=== PATIENT | female | born 1990 | race Caucasian/White ===

== ENCOUNTER 2025-01-13 04:00 | Day surgery (SDC) | payer OTHER ==
[2025-01-13] VITALS (211 sets, daily range): BP systolic 74–133; BP diastolic 44–102
[~2025-01-13] VITALS: Ht 154.9 cm; Wt 57.2 kg
[~2025-01-13 04:00] MED LIST: SODIUM CHLORIDE 0.9% 1,000 ML IV PRN
[2025-01-13] MEDS ORDERED: LACTATED RINGER'S 1,000 ML IV PRN ×2 (07:30→08:20)
[2025-01-13] MEDS ORDERED: cloNIDine HCL 0.1 MG/TAB PO PRN (07:30)
[2025-01-13] MEDS ORDERED: CYANOCOBALAMIN 500 MCG/TAB ( B12) PO PRN (07:30)
[2025-01-13] MEDS ORDERED: FAMOTIDINE 20 MG/TAB PO PRN (07:30)
[2025-01-13] MEDS ORDERED: PANTOPRAZOLE SODIUM Sesquihydr 40 MG/TAB PO PRN (07:30)
[2025-01-13] MEDS ORDERED: SCOPOLAMINE 1.5 MG DIS TD PRN (07:30)
[2025-01-13] MEDS ORDERED: ALBUTEROL SULFATE 2.5 MG VIAL IN PRN (07:30)
[2025-01-13] MEDS ORDERED: diazePAM 5 MG/TAB PO PRN ×2 (07:30→08:30)
[2025-01-13] MEDS ORDERED: ASCORBIC ACID 4,000 MG in SODIUM CHLORIDE 0.9% 1,000 ML IV SCH (08:00)
[2025-01-13 08:08] LABS: BASO% 0.6 % (0-3); EOS% 1.5 % (0-8); HEMATOCRIT 36.2 % (37.0-47.0); HEMOGLOBIN 11.9 g/dl (12.0-16.0); IMMATURE GRANULOCYTES 0.2 % (0.0-5.0); LYMPH% 26.9 % (15-41); MEAN CELL VOLUME 93.3 fL CALC (80.0-100.0); MEAN CORPUSCULAR HGB 30.7 pG CALC (26.0-32.0); MEAN CORPUSCULAR HGB CONC 32.9 g/dL CAL (32.0-36.0); MONO% 7.9 % (2-13); NEUT# 3.35 thou/uL (2.00-7.15); NEUT% 62.9 % (42-76); RED BLOOD COUNT 3.88 mill/uL (4.20-5.60); RED CELL DISTRI WIDTH 14.4 % (11.5-15.5)
[2025-01-13 08:18] LABS: ALBUMIN 4.5 g/dL (3.2-5.0); BILIRUBIN, TOTAL 0.3 mg/dL (0.02-1.3); CREATININE 0.5 mg/dL (0.5-1.0); POTASSIUM 4.1 mmol/l (3.5-5.1); TOTAL PROTEIN 7.5 g/dL (6.3-8.2)
[2025-01-13] MEDS ORDERED: STERILE WATER FOR IRRIGATION 1,000 ML BTL IR PRN (08:20)
[2025-01-13] MEDS ORDERED: OCTREOTIDE ACETATE 100 MCG/VIAL SDV SC PRN (08:20)
[2025-01-13] MEDS ORDERED: PROPOFOL 10 MG/ML 100ML VIAL IV PRN (08:20)
[2025-01-13] MEDS ORDERED: MAGNESIUM SULFATE HEPTAHYDRATE 100 ML IV PRN (08:20)
[2025-01-13] MEDS ORDERED: ONDANSETRON HCl 4 MG/2 ML SDV IV PRN ×3 (08:20→19:00)
[2025-01-13] MEDS ORDERED: diazePAM 5 MG/TAB VT PRN (08:20)
[2025-01-13] MEDS ORDERED: LIDOCAINE HCL 1% (10MG/ML) 100 MG/10 ML MDV IV PRN (08:20)
[2025-01-13] MEDS ORDERED: DiphenhydrAMINE HCL 50 MG/ML SDV IV PRN (08:20)
[2025-01-13] MEDS ORDERED: PROPOFOL 100 ML IV PRN (08:20)
[2025-01-13] MEDS ORDERED: cloNIDine HCL 0.1 MG/TAB VT PRN (08:20)
[2025-01-13] MEDS ORDERED: LIDOCAINE HCL 1% (10MG/ML) 100 MG/10 ML MDV VT PRN ×2 (08:20)
[2025-01-13] MEDS ORDERED: THIAMINE HCL 100 MG/ML 2ML VIAL IV PRN (08:20)
[2025-01-13] MEDS ORDERED: SUCCINYLCHOLINE CHLORIDE 20 MG/ML 10ML VIAL IV PRN (08:20)
[2025-01-13] MEDS ORDERED: NALTREXONE HCL 50 MG/TAB VT PRN (08:20)
[2025-01-13] MEDS ORDERED: MIDAZOLAM HCL 2 MG/2 ML VIAL IV PRN ×3 (08:20→15:00)
[2025-01-13] MEDS ORDERED: ROCURONIUM BROMIDE 10 MG/ML 5 ML VIAL IV PRN (08:20)
[2025-01-13] MEDS ORDERED: cloNIDine HYDROCHLORIDE 100 MCG/ML 10 ML INJ IV PRN (08:20)
[2025-01-13] MEDS ORDERED: SODIUM CHLORIDE 0.9% 1,000 ML IV PRN ×2 (08:25→14:55)
[2025-01-13] MEDS ORDERED: diazePAM 5 MG/TAB PO SCH (08:30)
[2025-01-13] MEDS ORDERED: POTASSIUM CHLORIDE 20 MEQ/100 ML BAG IV PRN (09:20)
[2025-01-13] MEDS ORDERED: PHENYLEPHRINE HCL 10 MG in DEXTROSE 5% 250 ML IV PRN (09:55)
[2025-01-13] MEDS ORDERED: PHENYLEPHRINE HCL 10 MG/ML VIAL ONE (10:54)
[2025-01-13] MEDS ORDERED: DEXMEDETOMIDINE HCL IN SODIUM 100 ML IV SCH (12:05)
[2025-01-13] MEDS ORDERED: clonazePAM 1 MG/TAB PO PRN (15:00)
[2025-01-13] MEDS ORDERED: NALTREXONE50 MG PO (15:10)
[2025-01-13] MEDS ORDERED: CLONIDINE0.1 MG PO (15:11)
[2025-01-13] MEDS ORDERED: KLONOPIN2 MG PO (15:11)
[2025-01-13] MEDS ORDERED: ONDANSETRON4 MG PO (15:12)
[2025-01-13] MEDS ORDERED: KETOROLAC TROMETHAMINE 30 MG/ML SDV IV PRN (19:00)
[2025-01-13] MEDS ORDERED: ACETAMINOPHEN 500 MG TAB PO PRN (19:00)
[2025-01-13] MEDS ORDERED: HALOPERIDOL LACTATE 5 MG/ML SDV IV PRN (19:00)
[2025-01-13] MEDS ORDERED: ACETAMINOPHEN 1,000 MG/100 ML VIAL IV PRN (19:00)
[2025-01-13] MEDS ORDERED: PATIENT' OWN MED CONTROLLED 1 EA DOSE IV PRN (21:00)
[2025-01-13] MEDS ORDERED: cloNIDine HCL 0.1 MG/TAB PO SCH (23:00)
[2025-01-14 03:55] VITALS: BP 103/64
[2025-01-14] MEDS ORDERED: cloNIDine HCL 0.1 MG/TAB PO PRN (04:00)
[2025-01-14] MEDS ORDERED: NALTREXONE HCL 50 MG/TAB PO SCH (04:00)
[2025-01-14] MEDS ORDERED: clonazePAM 1 MG/TAB PO PRN ×2 (04:00→08:00)
[2025-01-14 05:38] LABS: HEMATOCRIT 36.7 % (37.0-47.0); IMMATURE GRANULOCYTES 0.3 % (0.0-5.0); LYMPH% 7.3 % (15-41); MEAN CELL VOLUME 93.1 fL CALC (80.0-100.0); MEAN CORPUSCULAR HGB 30.5 pG CALC (26.0-32.0); MEAN CORPUSCULAR HGB CONC 32.7 g/dL CAL (32.0-36.0); MONO% 4.1 % (2-13); NEUT# 8.24 thou/uL (2.00-7.15); NEUT% 88.3 % (42-76); RED BLOOD COUNT 3.94 mill/uL (4.20-5.60); RED CELL DISTRI WIDTH 14.4 % (11.5-15.5)
[2025-01-14 05:49] LABS: ALBUMIN 4.1 g/dL (3.2-5.0); CREATININE 0.5 mg/dL (0.5-1.0); MAGNESIUM 2.5 mg/dL (1.6-2.3); POTASSIUM 4.4 mmol/l (3.5-5.1)
[2025-01-14 06:00] LABS: BILIRUBIN, TOTAL 0.7 mg/dL (0.02-1.3)
[2025-01-14 07:33] VITALS: BP 93/62
[2025-01-14] MEDS ORDERED: cloNIDine HCL 0.1 MG/TAB PO SCH (08:00)
[2025-01-14] MEDS ORDERED: PANTOPRAZOLE SODIUM Sesquihydr 40 MG/TAB PO SCH (08:00)
[2025-01-14] MEDS ORDERED: ACETAMINOPHEN 325 MG/TAB PO SCH (08:00)
[2025-01-14] MEDS ORDERED: ACETAMINOPHEN 500 MG TAB PO PRN (09:00)
[2025-01-14] MEDS ORDERED: Cholecalciferol 2,000 UNIT/TAB PO PRN (09:00)
[2025-01-14] MEDS ORDERED: MAGNESIUM OXIDE 400 MG/TAB PO PRN (09:00)
== END 2025-01-14 13:15 | disposition home or self-care (01) | DRG 897 ==
LOC: MS2 04:00 → ANR 04:00 → MS2 16:28 → ANR 01-14 13:15
PROVIDERS: ATTEND Anesthesiology Critical Care Medicine
DX: F11.20 Opioid dependence, uncomplicated (principal)
CPT/HCPCS: J1100; J1200; J2354; J2405; J2704; J3411; J3475; J3480